=== PATIENT | male | born 1995 | race Caucasian/White ===

== ENCOUNTER 2018-09-28 10:27 | Emergency (ER) | payer OTHER ==
[~2018-09-28] VITALS: Ht 182.9 cm; Wt 85.7 kg
== END 2018-09-28 12:22 | disposition home or self-care (01) ==
LOC: ED 10:27
PROC: 0XQKXZZ Repair Left Hand, External Approach (ICD-10-PCS; principal; 2018-09-28)
DX: S61.412A Laceration without foreign body of left hand, initial encounter (principal); W22.8XXA Striking against or struck by other objects, initial encounter
CPT/HCPCS: 12002; 73130; 99283-25